=== PATIENT | male | born 1950 | race Caucasian/White ===

== ENCOUNTER 2017-03-07 11:22 | Emergency (ER) | payer MEDICARE, MEDICAID ==
[~2017-03-07] VITALS: Wt 66.5 kg
[~2017-03-07 11:22] MED LIST: ASPI-664 PO; BENA40TA41 PO; CARV12.579 PO; HYDR25TA6 PO; PRAS10TA6 PO; ZOC10 PO
[2017-03-07] MEDS ORDERED: ACETAMINOPHEN 325 MG TAB PO ONE (14:00)
--- NOTE | 2017-03-07 14:56 | RADRPT ---
PROCEDURE: XR Chest. CLINICAL INDICATION: Back pain, chest pain TECHNIQUE: AP view of the chest was obtained. COMPARISON: 05/04/2014 FINDINGS: There are atherosclerotic calcifications of the thoracic aorta. Cardiac silhouette is mildly enlar ged. The lungs are clear. No pleural effusion or pneumothorax is seen. Visualized osseous structu res appear intact. IMPRESSION: No acute cardiopulmonary disease identified. RPTAT: VV .Cezar Unger MD, MD Date Time Electronically viewed and signed by .Cezar Unger MD, on 03/07/2017 14:56 .O/
[2017-03-07] MEDS ORDERED: TRAM50TA2 PO (15:19)
[2017-03-07] MEDS ORDERED: ACET500C5 PO (15:19)
--- NOTE | 2017-03-07 15:23 | ERD ---
ER Documentation Chief Complaint Date/Time DATE: 03/07/17 TIME: 15:21 Chief Complaint l. back pain by l. shoulder blade on movement, denies trauma HPI This 66-year-old male complains of left upper back pain for last day. He woke with this pain. Patient has a history of multiple cardiac stents in was told that if. Back pain or chest pain is go to the ER. The pain is worse with deep breathing and moving his upper extremities. He has no pain at rest. Denies any shortness of breath or sustained anterior chest pain. Or any anterior chest pain. Denies any fevers or recent URIs. ROS All systems reviewed and are negative except as per history of present illness. Medications Home Meds Active Scripts Tramadol HCl (Tramadol HCl) 50 Mg Tablet, 50 MG PO Q4 Y for PAIN, #15 TAB Prov:LEONOR DINH MD 03/07/17 Acetaminophen* (Tylophen*) 500 Mg Capsule, 1 CAP PO Q6H Y for PAIN AND OR ELEVATED TEMP, #15 CAP Prov:LEONOR DINH MD 03/07/17 Reported Medications Simvastatin (Simvastatin) 10 Mg Tablet, 10 MG PO HS, TAB 05/01/14 Prasugrel Hydrochloride* (Effient*) 10 Mg Tablet, 10 MG PO DAILY, TAB 05/01/14 Hydrochlorothiazide* (Hydrochlorothiazide*) 25 Mg Tab, 25 MG PO DAILY, TAB 05/01/14 Carvedilol* (Carvedilol*) 12.5 Mg Tablet, 12.5 MG PO DAILY, TAB 05/01/14 Benazepril Hcl* (Benazepril Hcl*) 40 Mg Tablet, 40 MG PO DAILY, TAB 05/01/14 Aspirin* (Aspirin* (EC)) 81 Mg Tablet.dr, 81 MG PO DAILY, TAB 05/01/14 Allergies Allergies: Coded Allergies: No Known Allergies (Verified Allergy, Mild, 05/01/14) PMhx/Soc History of Surgery: Yes (s/p stenting) Anesthesia Reaction: No Hx Neurological Disorder: No Hx Respiratory Disorders: No Hx Cardiac Disorders: Yes (cad, htn, high cholesterol) Hx Psychiatric Problems: No Hx Miscellaneous Medical Probl: Yes (ischemic disease) Hx Alcohol Use: Yes Hx Substance Use: No Hx Tobacco Use: Yes Smoking Status: Current every day smoker Physical Exam Vitals Vital Signs Date Time Temp Pulse Resp B/P Pulse Ox O2 Delivery O2 Flow Rate FiO2 03/07/17 11:23 97.7 68 20 140/86 100 Physical Exam Const: [] Alert, [id number]. Head: Atraumatic Eyes: Normal Conjunctiva ENT: Normal External Ears, Nose and Mouth. Neck: Full range of motion..~ No meningismus. Resp: Clear to auscultation bilaterally tenderness in the left upper thoracic area with palpable spasm and reproducible pain. Cardio: Regular rate and rhythm, no murmurs Abd: Soft, non tender, non distended. Normal bowel sounds Skin: No petechiae or rashes Back: No midline or flank tenderness Ext: No cyanosis, or edema Neur: Awake and alert Psych: Normal Mood and Affect Results 24 hrs Current Medications Medications (Trade) Dose Ordered Sig/Elana Route PRN Reason Start Time Stop Time Status Last Admin Dose Admin Acetaminophen (Tylenol Tab) 650 mg ONCE ONCE PO 03/07/17 14:00 03/07/17 14:01 DC 03/07/17 14:43 Procedures/MDM EKG: Rate/Rhythm: [Normal Sinus Rhythm] rate equals 58. QRS, ST, T-waves: [No changes consistent w/ acute ischemia] Impression: [No evidence of ischemia or arrhythmia]. Impression-no evidence of acute ischemia or arrhythmias. Chest X-ray 1V Interpreted by me: Soft Tissue: No acute abnormalities Bones: No acute abnormalities Mediastinum/Cardiac Silhouette/Lungs: [No acute abnormalities] impression- normal 1 view chest x-ray Was given Tylenol for pain. Patient presents with reproducible left upper back pain consistent with thoracic spasm. He will be treated with Tylenol and tramadol, instructions for stretching massage and primary care follow-up and return precautions. The patient was stable with no new complaints during the ER course. Clinically, there is no current evidence to suggest meningitis, sepsis, acute abdomen, pneumonia, acute coronary syndrome, pulmonary embolism, or any other emergent condition appearing to require further evaluation or hospitalization. The patient should certainly return for any new or worsening symptoms per the aftercare instructions. They should otherwise follow-up with her primary care doctor for reevaluation this week. Departure Diagnosis: Primary Impression: Spasm of thoracic back muscle Condition: Stable Patient Instructions: Thoracic Strain Additional Instructions: X-ray and EKG showed no acute findings. Recommend stretching and massage primary care follow-up and recheck for fevers, shortness breath, new or worsening symptoms or primary care doctor. LEONOR DINH MD Mar 07, 2017 15:23
[2017-03-07 15:59] VITALS: BP 133/80; PULSE 79; RESP 18; TEMP 98
== END 2017-03-07 16:01 | disposition home or self-care (01) ==
LOC: FTE 11:22
DX: M62.830 Muscle spasm of back (principal); I25.10 Atherosclerotic heart disease of native coronary artery without angina pectoris; I10 Essential (primary) hypertension; F17.210 Nicotine dependence, cigarettes, uncomplicated; Z79.82 Long term (current) use of aspirin; Z98.61 Coronary angioplasty status
CPT/HCPCS: 71010

== ENCOUNTER 2017-03-17 15:55 | Emergency (ER) | payer MEDICARE, MEDICAID ==
[~2017-03-17] VITALS: Ht 162.6 cm; Wt 65.0 kg
[~2017-03-17 15:55] MED LIST changes: +ACET500C5 PO; +TRAM50TA2 PO
[2017-03-17 15:56] VITALS: Ht 162.6 cm; Wt 65.0 kg
[2017-03-17] MEDS ORDERED: DIPHTH/TET/ACEL PERTUSS (ADULT) 0.5 ML VIAL IM* ONE (16:30)
[2017-03-17] MEDS ORDERED: LIDOCAINE 1% (MDV) 20 ML INJ SC ONE (16:30)
--- NOTE | 2017-03-17 16:38 | ERD ---
ER Documentation Chief Complaint Chief Complaint lac on rt lower leg fell and hit his leg on barbwire HPI 66-year-old male comes in with a laceration to his right lower extremity when he accidentally cut it against a barbwire on a hike. Patient complains of sharp pain, localized, that is mild. Pain is worse when he steps down, and is alleviated when he takes pressure off of his foot. Patient's last tetanus shot is unknown. ROS All systems reviewed and are negative except as per history of present illness. Medications Home Meds Active Scripts Tramadol HCl (Tramadol HCl) 50 Mg Tablet, 50 MG PO Q4 Y for PAIN, #15 TAB Prov:LEONOR DINH MD 03/07/17 Acetaminophen* (Tylophen*) 500 Mg Capsule, 1 CAP PO Q6H Y for PAIN AND OR ELEVATED TEMP, #15 CAP Prov:LEONOR DINH MD 03/07/17 Reported Medications Simvastatin (Simvastatin) 10 Mg Tablet, 10 MG PO HS, TAB 05/01/14 Prasugrel Hydrochloride* (Effient*) 10 Mg Tablet, 10 MG PO DAILY, TAB 05/01/14 Hydrochlorothiazide* (Hydrochlorothiazide*) 25 Mg Tab, 25 MG PO DAILY, TAB 05/01/14 Carvedilol* (Carvedilol*) 12.5 Mg Tablet, 12.5 MG PO DAILY, TAB 05/01/14 Benazepril Hcl* (Benazepril Hcl*) 40 Mg Tablet, 40 MG PO DAILY, TAB 05/01/14 Aspirin* (Aspirin* (EC)) 81 Mg Tablet.dr, 81 MG PO DAILY, TAB 05/01/14 Allergies Allergies: Coded Allergies: No Known Allergies (Verified Allergy, Mild, 05/01/14) PMhx/Soc History of Surgery: Yes (s/p stenting) Anesthesia Reaction: No Hx Neurological Disorder: No Hx Respiratory Disorders: No Hx Cardiac Disorders: Yes (cad, htn, high cholesterol) Hx Psychiatric Problems: No Hx Miscellaneous Medical Probl: Yes (ischemic disease) Hx Alcohol Use: Yes Hx Substance Use: No Hx Tobacco Use: Yes Smoking Status: Current every day smoker Physical Exam Vitals Vital Signs Date Time Temp Pulse Resp B/P Pulse Ox O2 Delivery O2 Flow Rate FiO2 03/17/17 15:56 98.2 102 18 115/84 98 Physical Exam General: Well-developed, well-nourished. The patient appears in no acute distress. HEENT: Head is normocephalic, atraumatic. No scleral icterus. Neck: Supple. Nontender. Lungs: Clear to auscultation. Normal air movement. Heart: Regular rate and rhythm. S1 and S2 are normal. No murmurs, gallops, or rubs. Abdomen: Nondistended. Extremities: 1.5 cm laceration at the right medial lower leg, nonpulsatile bleeding, no foreign bodies Neurologic: Alert and oriented 3. No focal deficits. Normal speech and gait. Skin: Normal turgor. No rash or lesions. Results 24 hrs Current Medications Medications (Trade) Dose Ordered Sig/Elana Route PRN Reason Start Time Stop Time Status Last Admin Dose Admin Lidocaine (Xylocaine 1% (Mdv) 20 ml) 20 ml ONCE ONCE SC 03/17/17 16:30 03/17/17 16:31 DC Diphtheria/ Tetanus/Acell Pertussis (Adacel) 0.5 ml ONCE ONCE IM* 03/17/17 16:30 03/17/17 16:31 DC 03/17/17 16:25 Procedures/MDM Laceration Repair by me: Patient was verbally consented Anesthesia: 1% lidocaine locally Location: Right lower leg Tendon/Joint/Nerves: No injury Foreign body: None detected after copious irrigation and exploration Technique: Simple Interrupted Sutures 3 using 5-0 Ethilon Complexity: Venous bleeding, was closed with a [id number] suture using 5-0 Vicryl. Post Closure Length: 1.5 cm Patient's bleeding was easily controlled in the department and there is no indication of anemia. No evidence of compartment syndrome, neurologic injury, vascular injury, open joint, tendon laceration, or foreign body. Patient is appropriate for outpatient follow up. 48 hour wound check. Scar minimization instructions given. Departure Diagnosis: Primary Impression: Laceration Condition: Good WILLEM OLIVAREZ PA-C Mar 17, 2017 16:38
== END 2017-03-17 17:22 | disposition home or self-care (01) ==
LOC: FTE 15:55
DX: S81.811A Laceration without foreign body, right lower leg, initial encounter (principal); I25.10 Atherosclerotic heart disease of native coronary artery without angina pectoris; I10 Essential (primary) hypertension; F17.210 Nicotine dependence, cigarettes, uncomplicated; W26.8XXA Contact with other sharp object(s), not elsewhere classified, initial encounter; Y92.9 Unspecified place or not applicable; Z23 Encounter for immunization; Z98.61 Coronary angioplasty status; Z79.82 Long term (current) use of aspirin
CPT/HCPCS: 90471; 90715

== ENCOUNTER 2017-03-20 07:48 | Emergency (ER) | payer MEDICARE, MEDICAID ==
[~2017-03-20] VITALS: Wt 65.5 kg
[2017-03-20] MEDS ORDERED: CEPH-443 PO (08:17)
--- NOTE | 2017-03-20 08:22 | ERD ---
ER Documentation Chief Complaint Chief Complaint PT HERE FOR WOUND CHECK ON LAC REPAIR 03/17/17 HPI This 66-year-old male presents for routine recheck for laceration repair 2 days ago. Is a 3 cm laceration just has mild localized pain that is much improved from when he had the laceration. No drainage from the wound. No fevers and is otherwise feeling well. ROS All systems reviewed and are negative except as per history of present illness. Medications Home Meds Active Scripts Cephalexin* (Keflex*) 500 Mg Capsule, 500 MG PO TID for 5 Days, CAP Prov:BRIGID KIRKLAND DO 03/20/17 Tramadol HCl (Tramadol HCl) 50 Mg Tablet, 50 MG PO Q4 Y for PAIN, #15 TAB Prov:LEONOR DINH MD 03/07/17 Acetaminophen* (Tylophen*) 500 Mg Capsule, 1 CAP PO Q6H Y for PAIN AND OR ELEVATED TEMP, #15 CAP Prov:LEONOR DINH MD 03/07/17 Reported Medications Simvastatin (Simvastatin) 10 Mg Tablet, 10 MG PO HS, TAB 05/01/14 Prasugrel Hydrochloride* (Effient*) 10 Mg Tablet, 10 MG PO DAILY, TAB 05/01/14 Hydrochlorothiazide* (Hydrochlorothiazide*) 25 Mg Tab, 25 MG PO DAILY, TAB 05/01/14 Carvedilol* (Carvedilol*) 12.5 Mg Tablet, 12.5 MG PO DAILY, TAB 05/01/14 Benazepril Hcl* (Benazepril Hcl*) 40 Mg Tablet, 40 MG PO DAILY, TAB 05/01/14 Aspirin* (Aspirin* (EC)) 81 Mg Tablet.dr, 81 MG PO DAILY, TAB 05/01/14 Allergies Allergies: Coded Allergies: No Known Allergies (Verified Allergy, Mild, 03/20/17) PMhx/Soc History of Surgery: Yes (s/p stenting) Anesthesia Reaction: No Hx Neurological Disorder: No Hx Respiratory Disorders: No Hx Cardiac Disorders: Yes (cad, htn, high cholesterol) Hx Psychiatric Problems: No Hx Miscellaneous Medical Probl: Yes (ischemic disease) Hx Alcohol Use: Yes Hx Substance Use: No Hx Tobacco Use: Yes Smoking Status: Current every day smoker Physical Exam Vitals Vital Signs Date Time Temp Pulse Resp B/P Pulse Ox O2 Delivery O2 Flow Rate FiO2 03/20/17 07:51 97.2 60 17 144/65 98 Physical Exam Const: [] No distress Skin: No petechiae or rashesss Ext: No cyanosis, or edema. 3 cm laceration to left lower calf with well- healing laceration with 3 sutures well placed. There is surrounding calor and mild erythema. Neur: Awake and alert 3, no focal deficits Psych: Normal Mood and Affect Procedures/MDM Wound check of well-healing laceration with mild surrounding erythema and definite caloric. This may be inflammatory in nature however would not like to the mild cellulitis become more severe and I am going to discharge him with Keflex as well as return in 3-4 days for suture removal and wound check. Departure Diagnosis: Primary Impression: Encounter for wound re-check Condition: Stable Patient Instructions: Wound Check, Lac F/U (No Infection) Referrals: JUANCARLOS KRAFT MD (PCP) Additional Instructions: Call your primary care doctor TOMORROW for an appointment during the next 1-2 days.See the doctor sooner or return here if your condition worsens before your appointment time. BRIGID KIRKLAND DO Mar 20, 2017 08:22
== END 2017-03-20 08:32 | disposition home or self-care (01) ==
LOC: FTE 07:48
DX: Z48.01 Encounter for change or removal of surgical wound dressing (principal); I25.10 Atherosclerotic heart disease of native coronary artery without angina pectoris; I10 Essential (primary) hypertension; F17.210 Nicotine dependence, cigarettes, uncomplicated; Z79.82 Long term (current) use of aspirin; Z98.61 Coronary angioplasty status
CPT/HCPCS: 99283

== ENCOUNTER 2017-03-30 06:34 | Emergency (ER) | END 2017-03-30 06:50 | disposition home or self-care (01) | DX: Z48.02 Encounter for removal of sutures (principal); I25.10 Atherosclerotic heart disease of native coronary artery without angina pectoris; I10 Essential (primary) hypertension; Z87.891 Personal history of nicotine dependence; Z79.82 Long term (current) use of aspirin ==